=== PATIENT | female | born 1975 | race Caucasian/White ===

== ENCOUNTER 2024-01-13 08:50 | Oncology outpatient (recurring) (ONCR) | payer BC, SELFPAY ==
[2023-12-29 12:25] LABS: Basophils % 0.4 %; Eosinophils # 0.1 10^3/uL (0.0-0.8); Hematocrit 28.4 % (36-47); Lymphocytes # 1.1 10^3/uL (0.8-4.8); Lymphocytes % 20.1 %; Mean Corpuscular HGB Conc 30.6 g/dL (30-55); Mean Corpuscular Hemoglobin 31.6 pg (27-33); Mean Corpuscular Volume 103.3 fl (85-98); Mean Platelet Volume 8.7 fL (7.4-10.4); Monocytes # 0.6 10^3/uL (0.2-0.9); Monocytes % 11.6 %; Neutrophils # 3.55 10^3/uL (1.8-7.7); Neutrophils % 65.5 %; Nucleated Red Blood Cells % 0 %; Platelet Count 126 10^3/cmm (157-399); Red Blood Count 2.75 10^6/uL (3.85-5.65); Red Cell Distribution Width 18.1 % (12.1-15.1); White Blood Count 5.42 10^3/uL (3.29-11.43)
[2023-12-29 13:08] LABS: Alanine Aminotransferase 22 U/L (0-33); Albumin Level 2.9 g/dL (3.5-5.2); Alkaline Phosphatase 76 U/L (35-105); Anion Gap 17.7 (5-19); Aspartate Amino Transferase 28 U/L (0-32); Blood Urea Nitrogen 23 mg/dL (6-20); Calcium 7.5 mg/dL (8.5-10.5); Cancer Antigen 19 9 194.2 U/mL (0-35); Carbon Dioxide 18 mmol/L (22-29); Chloride 112 mmol/L (98-107); Creatinine Clr Calc Pharmacy 89.8995; Globulin 2.7 g/dL (1.3-4.6); Glomerular Filtration Rate 59.7 mL/min (90-130); Glucose 130 mg/dL (65-115); Osmolality Calculated 301 mOsm/kg (285-295); Potassium 4.7 mmol/L (3.5-5.1); Sodium 143 mmol/L (136-145); Total Bilirubin 0.6 mg/dL (0.15-1.2); Total Protein 5.6 g/dL (6.6-8.7)
[2023-12-29 16:06] LABS: Iron 51 ug/dL (37-145); Percent Saturation 19.5 % (20-50); Total Iron Binding Capacity 261 mcg/dl; Unsaturated Iron Binding 210 ug/dL (112-347)
[2023-12-29 16:22] LABS: Vitamin B12 356 pg/mL (232-1245)
--- NOTE | 2024-01-13 08:30 | PETR_ITS ---
PROCEDURE INFORMATION: Exam: PET/CT Skull Base to Mid-thigh Exam date and time: 01/13/2024 10:06 AM Age: 48 years old Clinical indication: Condition or disease; Primary cancer: Pancreatic cancer; Initial oncological staging assessment LABS AND CLINICAL REPORTS: Glucose: 132 mg/dl Treatment strategy for malignancy (PET staging): Initial Staging (PI) TECHNIQUE: Imaging protocol: Following at least four-hour fasting and following the injection of radiopharmaceutical, low dose CT images were obtained. Then, PET images were obtained. Attenuation corrected images were constructed using the CT scan. Fused images of PET and CT were reviewed. The standardized uptake values (SUV) reported below are maximum values within a region of interest, expressed in gm/ml. Exam includes orbital meatal line to mid-thigh. Radiopharmaceutical: 8.89 mCi F-18 FDG (Fluorodeoxyglucose), IV. Time of imaging post radiopharmaceutical administration: 1 hour Injection site: Right forearm COMPARISON: CT chest abdpel w/*[id number] 11/25/2023 FINDINGS: Port catheter placed via the right internal jugular vein terminates in the right atrium. Brain: Visualized brain has normal physiologic uptake. Pharynx: No abnormal uptake. Larynx: No abnormal uptake. Lungs, pleura and trachea: No abnormal uptake. No lung nodules or masses. No pleural effusion. Heart: Normal physiologic uptake. There is no cardiomegaly. Mediastinal space: No abnormal uptake. Liver: No abnormal uptake. Fatty liver. Maximum uptake is 4.4 SUV. Gallbladder and biliary ducts: No abnormal uptake. There is stent in the common bile duct with expected pneumobilia with no abnormal dilatation of intrahepatic bile ducts. Status post cholecystectomy. Pancreas: Ill-defined area of mildly increased uptake of 4.9 SUV in the head of the pancreas possibly represents the known primary malignancy. Spleen: No abnormal uptake. Borderline prominent size of the spleen (13.3 cm). Adrenal glands: No abnormal uptake. No nodules. Kidneys and ureters: Normal physiologic uptake. No hydronephrosis. Stomach and bowel: Elongated segments of increased uptake in the sigmoid colon with no corresponding CT abnormality suggestive of benign finding. No abnormal dilatation of the bowel. Vasculature: No abnormal uptake. Lymph nodes: No abnormal uptake. No lymphadenopathy in the head, neck, chest, abdomen, pelvis, and extremities. Skeleton: No abnormal uptake in the visualized axial and appendicular skeleton. Soft tissues: Benign muscular uptake in the left posterior proximal thigh and the right gluteus belen muscle. Extensive soft tissue edema in the abdominal wall, in the gluteal areas and bilateral proximal thighs. PET/PET skull to thigh [id number] IMPRESSION: Low-grade uptake of 4.9 SUV in the head of the pancreas (only slightly exceeding normal hepatic uptake to 4.4 SUV) in keeping with known primary malignancy. No FDG avid lymphadenopathy in the abdomen, no evidence of distant FDG avid metastatic disease.
== END 2024-01-19 23:59 | disposition home or self-care (01) ==
LOC: RAD 08:50 → ONCMED 09:01
PROVIDERS: Visit Provider Internal Medicine Medical Oncology
DX: C25.9 Malignant neoplasm of pancreas, unspecified
CPT/HCPCS: 36591; 78815; 80053; 82607; 83540; 83550; 85025; 86301; A9552

== ENCOUNTER 2024-02-17 13:15 | Oncology outpatient (recurring) (ONCR) | payer BC, SELFPAY ==
[2024-02-17 13:55] LABS: Basophils % 0.4 %; Eosinophils # 0.2 10^3/uL (0.0-0.8); Eosinophils % 3.8 %; Hematocrit 34.9 % (36-47); Lymphocytes # 1.3 10^3/uL (0.8-4.8); Lymphocytes % 25.4 %; Mean Corpuscular HGB Conc 30.9 g/dL (30-55); Mean Corpuscular Hemoglobin 29.8 pg (27-33); Mean Corpuscular Volume 96.1 fl (85-98); Mean Platelet Volume 8.9 fL (7.4-10.4); Monocytes # 0.4 10^3/uL (0.2-0.9); Monocytes % 8.5 %; Neutrophils # 3.15 10^3/uL (1.8-7.7); Neutrophils % 60.6 %; Nucleated Red Blood Cells % 0 %; Platelet Count 172 10^3/cmm (157-399); Red Blood Count 3.63 10^6/uL (3.85-5.65); Red Cell Distribution Width 14.1 % (12.1-15.1)
[2024-02-17 13:56] LABS: Reticulocyte % 2.2 % (0.5-2.0)
[2024-02-17 14:33] LABS: Folate Level 15.1 ng/mL (4.8-37.3)
[2024-02-17 14:35] LABS: Alanine Aminotransferase 20 U/L (0-33); Albumin Level 3.7 g/dL (3.5-5.2); Alkaline Phosphatase 85 U/L (35-105); Anion Gap 15.5 (5-19); Aspartate Amino Transferase 26 U/L (0-32); Blood Urea Nitrogen 16 mg/dL (6-20); Calcium 8.4 mg/dL (8.5-10.5); Cancer Antigen 19 9 710.7 U/mL (0-35); Carbon Dioxide 22 mmol/L (22-29); Chloride 106 mmol/L (98-107); Creatinine Clr Calc Pharmacy 101.8583; Ferritin 167 ng/mL (15-150); Globulin 3.7 g/dL (1.3-4.6); Glomerular Filtration Rate 59.7 mL/min (90-130); Glucose 151 mg/dL (65-115); Iron 48 ug/dL (37-145); Lactate Dehydrogenase 302 U/L (135-214); Osmolality Calculated 292 mOsm/kg (285-295); Percent Saturation 15.9 % (20-50); Potassium 4.5 mmol/L (3.5-5.1); Sodium 139 mmol/L (136-145); Total Bilirubin 0.3 mg/dL (0.15-1.2); Total Iron Binding Capacity 301 mcg/dl; Total Protein 7.4 g/dL (6.6-8.7); Unsaturated Iron Binding 253 ug/dL (112-347); Vitamin B12 495 pg/mL (232-1245)
[2024-02-23 13:05] LABS: Soluble Transferrin Receptor 2.37 mg/L (0.76-1.76)
== END 2024-02-19 23:59 | disposition home or self-care (01) ==
PROVIDERS: Visit Provider Internal Medicine Hematology & Oncology
DX: Z53.9 Procedure and treatment not carried out, unspecified reason (principal); C25.0 Malignant neoplasm of head of pancreas
CPT/HCPCS: 36591; 80053; 82607; 82728; 82746; 83540; 83550; 83615; 84238; 85025; 85045; 86301; 96523

== ENCOUNTER 2024-04-08 08:31 | Outpatient (CLI) | payer BC, SELFPAY ==
--- NOTE | 2024-04-08 10:00 | CTR_ITS ---
PROCEDURE INFORMATION: Exam: CT Chest With Contrast; Diagnostic Exam date and time: 04/08/2024 10:08 AM Age: 48 years old Clinical indication: Abnormal findings; Abnormal lab test; Elevated ca125; Other: Pancreatic cancer; Prior surgery; Surgery date: 6+ months; Surgery type: Exploratory for pancreas, hernia, gb; Additional info: Elevated CA 19-9 TECHNIQUE: Imaging protocol: Diagnostic computed tomography of the chest with contrast. Radiation optimization: All CT scans at this facility use at least one of these dose optimization techniques: automated exposure control; mA and/or kV adjustment per patient size (includes targeted exams where dose is matched to clinical indication); or iterative reconstruction. Contrast material: OMNI 350; Contrast volume: 100 ml; Contrast route: INTRAVENOUS (IV); COMPARISON: 1. PT PET skull to thigh [id number] 01/13/2024 10:[address] of the chest, abdomen, and pelvis performed on 11/25/2023 at 10:08 a.m. RADIATION DOSE METRICS: Total DLP (mGy-cm): 1708.37 FINDINGS: Tubes, catheters and devices: Right chest medical port with catheter terminating at the superior cavoatrial junction. Lungs: Unremarkable. No consolidation. No masses. Pleural spaces: Unremarkable. No pneumothorax. No pleural effusion. Heart: Unremarkable. No cardiomegaly. No pericardial effusion. Coronary arteries: No calcified coronary atherosclerotic disease. Lymph nodes: Unremarkable. No enlarged lymph nodes. Vasculature: Unremarkable. No aortic aneurysm. Bones/joints: Diffuse degenerative change of the visualized osseous structures. Soft tissues: Unremarkable. PROCEDURE INFORMATION: Exam: CT Abdomen And Pelvis With Contrast Exam date and time: 04/08/2024 10:08 AM Age: 48 years old Clinical indication: Abnormal findings; Abnormal lab test; Elevated ca125; Other: Pancreatic cancer; Prior surgery; Surgery date: 6+ months; Surgery type: Exploratory for pancreas, hernia, gb; Additional info: Elevated CA 19-9 TECHNIQUE: Imaging protocol: Computed tomography of the abdomen and pelvis with contrast. Radiation optimization: All CT scans at this facility use at least one of these dose optimization techniques: automated exposure control; mA and/or kV adjustment per patient size (includes targeted exams where dose is matched to clinical indication); or iterative reconstruction. Contrast material: OMNI 350; Contrast volume: 100 ml; Contrast route: INTRAVENOUS (IV); COMPARISON: 1. PT PET skull to thigh [id number] 01/13/2024 10:[address] of the chest, abdomen, and pelvis performed on 11/25/2023 at 10:08 a.m. RADIATION DOSE METRICS: Total DLP (mGy-cm): 1708.37 FINDINGS: Lungs: Lung bases are clear as visualized. Heart: Base of heart is unremarkable as visualized. Liver: Normal. No mass. Gallbladder and biliary ducts: Status post cholecystectomy. Redemonstrated common bile duct stent is seen. Redemonstrated pneumobilia. Pancreas: Perhaps mild interval atrophy of the pancreatic body and tail. Spleen: Normal. No splenomegaly. Adrenal glands: Normal. No mass. Kidneys and ureters: Normal. No hydronephrosis. Stomach and bowel: Mild colonic stool burden. Appendix: No evidence of appendicitis. Intraperitoneal space: Unremarkable. No free air. No significant fluid collection. Vasculature: Unremarkable. No abdominal aortic aneurysm. Lymph nodes: Interval appearance of pericaval and perihepatic lymphadenopathy with central low attenuation suggesting necrosis. Urinary bladder: Unremarkable as visualized. Reproductive: Retroflexed uterus. Bones/joints: Diffuse degenerative change of the visualized osseous structures. Soft tissues: Interval increase in soft tissue nodularity about the pancreatic head with heterogeneous, however predominantly hypoattenuating characteristics. Rectus diastasis is seen with a short length herniated loop of small bowel. CT/CT chest abdpel w/*[id number] IMPRESSION: No acute intrathoracic findings, specifically no evidence for intrathoracic metastatic disease. IMPRESSION: Interval increase in size/severity of predominantly hypoattenuating ill-defined soft tissue neoplasm of the pancreatic head from prior cross-sectional imaging (particularly the CT of the chest, abdomen, and pelvis performed on 11/25/2023). There appears to be interval necrotic pericaval and perihepatic lymphadenopathy, although this may represent new sites of primary malignancy given its proximity to the pancreatic head. Consider MRI for further assessment.
[2024-04-08] MEDS: iohexol 350 mg/mL 500 mL Btl (per mL) IV (10:16)
[2024-04-08] MEDS: iohexol 350 mg/mL 500 mL Btl (per mL) PO (10:16)
== END 2024-04-08 08:32 | disposition home or self-care (01) ==
LOC: RAD 08:32
PROVIDERS: Visit Provider Nurse Practitioner
DX: C25.0 Malignant neoplasm of head of pancreas (principal); K43.6 Other and unspecified ventral hernia with obstruction, without gangrene; N85.4 Malposition of uterus; Z90.49 Acquired absence of other specified parts of digestive tract; Z96.89 Presence of other specified functional implants; Z95.818 Presence of other cardiac implants and grafts
CPT/HCPCS: 71260; 74177

== ENCOUNTER 2024-04-12 09:41 | Oncology outpatient (recurring) (ONCR) | payer BC, MEDICAID, SELFPAY ==
[2024-03-30 08:27] LABS: Basophils % 0.5 %; Eosinophils # 0.3 10^3/uL (0.0-0.8); Eosinophils % 4.8 %; Hematocrit 35.6 % (36-47); Lymphocytes # 1.4 10^3/uL (0.8-4.8); Mean Corpuscular HGB Conc 32.3 g/dL (30-55); Mean Corpuscular Hemoglobin 28.8 pg (27-33); Mean Platelet Volume 8.9 fL (7.4-10.4); Monocytes # 0.4 10^3/uL (0.2-0.9); Monocytes % 7.2 %; Neutrophils # 3.87 10^3/uL (1.8-7.7); Neutrophils % 64.3 %; Nucleated Red Blood Cells % 0 %; Platelet Count 203 10^3/cmm (157-399); Red Cell Distribution Width 13.8 % (12.1-15.1); White Blood Count 6.01 10^3/uL (3.29-11.43)
[2024-03-30 08:53] LABS: Alanine Aminotransferase 26 U/L (0-33); Albumin Level 3.6 g/dL (3.5-5.2); Alkaline Phosphatase 80 U/L (35-105); Anion Gap 13.9 (5-19); Aspartate Amino Transferase 24 U/L (0-32); Blood Urea Nitrogen 24 mg/dL (6-20); Calcium 8.7 mg/dL (8.5-10.5); Cancer Antigen 19 9 825.6 U/mL (0-35); Carbon Dioxide 20 mmol/L (22-29); Chloride 109 mmol/L (98-107); Creatinine Clr Calc Pharmacy 108.3099; Globulin 3.9 g/dL (1.3-4.6); Glomerular Filtration Rate 67.4 mL/min (90-130); Glucose 149 mg/dL (65-115); Osmolality Calculated 293 mOsm/kg (285-295); Potassium 4.9 mmol/L (3.5-5.1); Sodium 138 mmol/L (136-145); Total Bilirubin 0.3 mg/dL (0.15-1.2); Total Protein 7.5 g/dL (6.6-8.7)
[2024-03-30] MEDS: sodium chloride 0.9% 250 ML 75 ML IV (09:59)
[2024-03-30] MEDS: palonosetron 0.25 mg/5 mL SDV IVP (10:01)
[2024-03-30] MEDS: dexamethasone 4 mg/mL INJ 5 mL 12 MG IVP (10:03)
[2024-03-30] MEDS: SODIUM CHLORIDE 0.9% IV (10:32)
[2024-03-30] MEDS: GEMCITABINE IV (10:32)
[2024-03-30 11:37] VITALS: BP 142/78; PULSE 71; RESP 17; TEMP 36.6; O2SAT 95
[2024-04-12 10:07] LABS: Basophils % 0.1 %; Eosinophils # 0.2 10^3/uL (0.0-0.8); Eosinophils % 1.7 %; Hematocrit 32.7 % (36-47); Lymphocytes # 0.6 10^3/uL (0.8-4.8); Lymphocytes % 6.5 %; Mean Corpuscular HGB Conc 32.1 g/dL (30-55); Mean Corpuscular Hemoglobin 28.7 pg (27-33); Mean Corpuscular Volume 89.3 fl (85-98); Mean Platelet Volume 8.9 fL (7.4-10.4); Monocytes % 10.4 %; Neutrophils # 7.48 10^3/uL (1.8-7.7); Neutrophils % 80.7 %; Nucleated Red Blood Cells % 0 %; Platelet Count 187 10^3/cmm (157-399); Red Blood Count 3.66 10^6/uL (3.85-5.65); Red Cell Distribution Width 13.7 % (12.1-15.1); White Blood Count 9.27 10^3/uL (3.29-11.43)
[2024-04-12 10:41] LABS: Alanine Aminotransferase 95 U/L (0-33); Alkaline Phosphatase 266 U/L (35-105); Aspartate Amino Transferase 76 U/L (0-32); Blood Urea Nitrogen 19 mg/dL (6-20); Calcium 8.7 mg/dL (8.5-10.5); Cancer Antigen 19 9 645.4 U/mL (0-35); Carbon Dioxide 21 mmol/L (22-29); Chloride 109 mmol/L (98-107); Creatinine Clr Calc Pharmacy 107.1355; Glomerular Filtration Rate 67.4 mL/min (90-130); Glucose 183 mg/dL (65-115); Osmolality Calculated 295 mOsm/kg (285-295); Sodium 139 mmol/L (136-145); Total Bilirubin 2.6 mg/dL (0.15-1.2)
== END 2024-04-20 23:59 | disposition home or self-care (01) ==
PROVIDERS: Nurse Practitioner; Visit Provider Internal Medicine Medical Oncology
DX: Z53.9 Procedure and treatment not carried out, unspecified reason (principal); C25.0 Malignant neoplasm of head of pancreas
CPT/HCPCS: 80053; 85025; 86301; 96375; 96413; J1100; J2469; J7050; J9201

== ENCOUNTER 2024-06-29 08:27 | Oncology outpatient (recurring) (ONCR) | payer OTHER, SELFPAY ==
[2024-06-21] MEDS: alteplase 1 mg/mL SDV 2 mL 2 MG INTRACATH (08:44)
[2024-06-21 10:36] LABS: Basophils % 0.2 %; Eosinophils # 0.2 10^3/uL (0.0-0.8); Eosinophils % 1.4 %; Hematocrit 24.6 % (36-47); Lymphocytes % 15.9 %; Mean Corpuscular HGB Conc 28.9 g/dL (30-55); Mean Corpuscular Hemoglobin 28.2 pg (27-33); Mean Corpuscular Volume 97.6 fl (85-98); Mean Platelet Volume 8.7 fL (7.4-10.4); Monocytes # 1.7 10^3/uL (0.2-0.9); Monocytes % 13.6 %; Neutrophils # 8.38 10^3/uL (1.8-7.7); Neutrophils % 68.3 %; Nucleated Red Blood Cells % 0 %; Platelet Count 376 10^3/cmm (157-399); Red Blood Count 2.52 10^6/uL (3.85-5.65); Red Cell Distribution Width 21.7 % (12.1-15.1); White Blood Count 12.26 10^3/uL (3.29-11.43)
[2024-06-21 11:02] LABS: Alanine Aminotransferase 36 U/L (0-33); Albumin Level 1.9 g/dL (3.5-5.2); Alkaline Phosphatase 472 U/L (35-105); Anion Gap 16.8 (5-19); Aspartate Amino Transferase 60 U/L (0-32); Blood Urea Nitrogen 22 mg/dL (6-20); Carbon Dioxide 18 mmol/L (22-29); Chloride 102 mmol/L (98-107); Globulin 6.5 g/dL (1.3-4.6); Glomerular Filtration Rate 53.5 mL/min (90-130); Glucose 134 mg/dL (65-115); Osmolality Calculated 279 mOsm/kg (285-295); Potassium 4.8 mmol/L (3.5-5.1); Sodium 132 mmol/L (136-145); Total Bilirubin 1.4 mg/dL (0.15-1.2); Total Protein 8.4 g/dL (6.6-8.7)
[2024-06-21 11:22] LABS: Cancer Antigen 19 9 1957 U/mL (0-35)
[2024-06-21] MEDS: diphenhydrAMINE 25 mg Capsule PO (12:31)
[2024-06-21] MEDS: acetaminophen 325 mg Tablet 650 MG PO (12:31)
[2024-06-21] MEDS: sodium chloride 0.9% 250 mL Bag IV ×2 (12:33→13:25)
[2024-06-21 13:25] VITALS: BP 108/79; PULSE 87; RESP 16; TEMP 36.4; O2SAT 95
[2024-06-21 13:34] VITALS: BP 96/69; PULSE 85; TEMP 36; O2SAT 97
[2024-06-21 13:49] VITALS: BP 88/62; PULSE 85; TEMP 35.8; O2SAT 99
[2024-06-21 14:06] VITALS: BP 105/71; PULSE 82; TEMP 36.2; O2SAT 94
[2024-06-21 14:36] VITALS: BP 103/64; PULSE 82; TEMP 36.1; O2SAT 95
[2024-06-21] MEDS: FUROsemide 10 mg/mL SDV 2mL 20 MG IVP (15:37)
[2024-06-21 15:52] VITALS: BP 114/76; PULSE 82; TEMP 35.8; O2SAT 100
[2024-06-22] MEDS: acetaminophen 325 mg Tablet 650 MG PO (11:36)
[2024-06-22] MEDS: diphenhydrAMINE 25 mg Capsule PO (11:37)
[2024-06-22 11:41] VITALS: BP 108/79; PULSE 87; RESP 18; TEMP 36.1; O2SAT 94
[2024-06-22 12:34] LABS: Basophils % 0.3 %; Eosinophils # 0.1 10^3/uL (0.0-0.8); Eosinophils % 0.4 %; Hematocrit 27.6 % (36-47); Lymphocytes # 1.8 10^3/uL (0.8-4.8); Lymphocytes % 12.2 %; Mean Corpuscular HGB Conc 30.1 g/dL (30-55); Mean Corpuscular Hemoglobin 28.8 pg (27-33); Mean Corpuscular Volume 95.8 fl (85-98); Mean Platelet Volume 8.7 fL (7.4-10.4); Monocytes % 13.7 %; Neutrophils # 10.52 10^3/uL (1.8-7.7); Neutrophils % 72.7 %; Nucleated Red Blood Cells % 0 %; Platelet Count 325 10^3/cmm (157-399); Red Blood Count 2.88 10^6/uL (3.85-5.65); Red Cell Distribution Width 20.4 % (12.1-15.1); White Blood Count 14.48 10^3/uL (3.29-11.43)
[2024-06-22 12:50] LABS: Anion Gap 17.4 (5-19); Blood Urea Nitrogen 23 mg/dL (6-20); Carbon Dioxide 17 mmol/L (22-29); Chloride 100 mmol/L (98-107); Glomerular Filtration Rate 59.7 mL/min (90-130); Glucose 124 mg/dL (65-115); Osmolality Calculated 275 mOsm/kg (285-295); Potassium 4.4 mmol/L (3.5-5.1); Sodium 130 mmol/L (136-145)
[2024-06-22] MEDS: sodium chloride 0.9% 250 ML 75 ML IV (13:18)
[2024-06-22 13:20] VITALS: BP 108/79; RESP 16; TEMP 36.4; O2SAT 95
[2024-06-22 13:40] VITALS: BP 91/63; PULSE 80; RESP 16; TEMP 36.3; O2SAT 93
[2024-06-22 14:15] VITALS: BP 100/67; PULSE 82; RESP 17; TEMP 36.6; O2SAT 94
[2024-06-22 15:00] VITALS: BP 105/73; PULSE 81; RESP 17; TEMP 36.4; O2SAT 96
[2024-06-22 15:21] VITALS: BP 105/73; PULSE 81; RESP 17; TEMP 36.4; O2SAT 96
== END 2024-07-19 23:59 | disposition home or self-care (01) ==
PROVIDERS: Nurse Practitioner Family; PCP Obstetrics & Gynecology; Visit Provider Internal Medicine Medical Oncology
DX: Z53.9 Procedure and treatment not carried out, unspecified reason (principal)
CPT/HCPCS: 36415; 36430; 36593; 80048; 80053; 85025; 86301; 86850; 86900; 86920; 87040; 96374; J1940; J2997; J7050; J9999; P9016